=== PATIENT | female | born 1990 | race American Indian/Alaskan Native ===

== ENCOUNTER 2019-04-06 16:01 | Emergency (ER) | payer SELFPAY ==
[2019-04-06 16:43] LABS: Bacteria,Urine 1+ /HPF (Negative); Bilirubin,Urine NEG (Negative); Blood,Urine SM (Negative); Color,Urine Straw (Yellow); Mucus,Urine FEW /HPF; Protein,Urine <15 mg/dL mg/dL (Negative); Urobilinogen,Urine < 2.0 mg/dL (<2.0)
[2019-04-06] MEDS ORDERED: ONDANSETRON 4 MG/2 ML INJ IV ONE (16:44)
[2019-04-06] MEDS ORDERED: SODIUM CHLORIDE 0.9% 1000 ML 1,000 ML IV ONE (16:44)
--- NOTE | 2019-04-06 16:47 | Emergency Department Report ---
ED Abdominal Pain HPI - General Chief Complaint: Abdominal Pain Stated Complaint: GLF Time Seen by Provider: 04/06/19 16:42 Source: family Mode of arrival: Stretcher Limitations: No Limitations - History of Present Illness Initial Comments: Patient is a 28-year-old female that presents emergency room with complaints of abdominal pain. Patient states she passed out today and fell on her stomach. Patient denies vaginal bleeding. Patient states she is 17 weeks . Patient states she has confirmed ultrasound at another ER, [facility] Patient states everything was normal with her transvaginal ultrasound. Patient states she is having nausea and vomiting. Patient states her abdominal pain is a 6 out of 10 and is generalized. Patient states the pain is better with rest and worse with movement. Patient states she is . MD Complaint: abdominal pain -: Sudden Location: diffuse Radiation: none Migration to: no migration Severity scale (0 -10): 6 Quality: aching Consistency: constant Improves With: rest Worsens With: vomiting, movement Associated Symptoms: nausea, vomiting, syncope. denies: diarrhea, fever, chills, constipation, dysuria, hematemesis, hematochezia, melena, hematuria, anorexia - Related Data Previous Rx's Medication Instructions Recorded Last Taken Type Ondansetron [Zofran Odt] 4 mg PO Q8HR PRN #12 tab.rapdis 04/06/19 Unknown Rx Vit No.129/Iron/Folic 1 each PO DAILY 30 Days #30 tablet 04/06/19 Unknown Rx [ Tablet] Allergies Allergy/AdvReac Type Severity Reaction Status Date / Time No Known Allergies Allergy Unverified 04/06/19 16:33 ED Review of Systems ROS: Stated complaint: GLF Other details as noted in HPI Constitutional: denies: chills, fever Eyes: denies: eye pain, eye discharge, vision change ENT: denies: ear pain, throat pain Respiratory: denies: cough, shortness of breath, wheezing Cardiovascular: denies: chest pain, palpitations Endocrine: no symptoms reported Gastrointestinal: abdominal pain, nausea, vomiting. denies: diarrhea Genitourinary: denies: urgency, dysuria, discharge Musculoskeletal: denies: back pain, joint swelling, arthralgia Skin: denies: rash, lesions Neurological: headache. denies: weakness, paresthesias Psychiatric: denies: anxiety, depression Hematological/Lymphatic: denies: easy bleeding, easy bruising ED Past Medical Hx - Past Medical History Previous Medical History?: Yes Additional medical history: pre-eclampsia - Surgical History Past Surgical History?: No - Family History Family history: no significant - Social History Smoking Status: Never Smoker Substance Use Type: None - Medications Home Medications: Home Medications Medication Instructions Recorded Confirmed Last Taken Type Ondansetron [Zofran Odt] 4 mg PO Q8HR PRN #12 tab.rapdis 04/06/19 Unknown Rx Vit No.129/Iron/Folic 1 each PO DAILY 30 Days #30 tablet 04/06/19 Unknown Rx [ Tablet] ED Physical Exam - General Limitations: No Limitations General appearance: alert, in no apparent distress - Head Head exam: Present: atraumatic, normocephalic - Eye Eye exam: Present: normal appearance - ENT ENT exam: Present: mucous membranes moist - Neck Neck exam: Present: normal inspection - Respiratory Respiratory exam: Present: normal lung sounds bilaterally. Absent: respiratory distress - Cardiovascular Cardiovascular Exam: Present: regular rate, normal rhythm. Absent: systolic murmur, diastolic murmur, rubs, gallop - GI/Abdominal GI/Abdominal exam: Present: soft, normal bowel sounds - Extremities Exam Extremities exam: Present: normal inspection - Back Exam Back exam: Present: normal inspection - Neurological Exam Neurological exam: Present: alert, oriented X3 - Psychiatric Psychiatric exam: Present: normal affect, normal mood - Skin Skin exam: Present: warm, dry, intact, normal color. Absent: rash ED Course Vital Signs 04/06/19 04/06/19 04/06/19 16:26 16:34 16:40 Temperature 98.6 F Pulse Rate 98 H Respiratory 20 19 Rate Blood Pressure Blood Pressure 127/77 [Right] O2 Sat by Pulse 100 100 100 Oximetry 04/06/19 04/06/19 04/06/19 17:30 18:57 19:20 Temperature Pulse Rate 96 H 83 102 H Respiratory 21 16 20 Rate Blood Pressure 106/58 106/58 Blood Pressure 112/67 [Right] O2 Sat by Pulse 99 99 100 Oximetry 04/06/19 04/06/19 04/06/19 19:30 20:00 20:30 Temperature Pulse Rate 105 H 96 H 103 H Respiratory 18 17 22 Rate Blood Pressure 117/81 112/67 125/69 Blood Pressure [Right] O2 Sat by Pulse 100 98 99 Oximetry - Reevaluation(s) Reevaluation #1: Patient tolerated by mouth intake. Patient tolerated water intake. Patient denies nausea and vomiting his time. Patient denies pain. Patient ultrasound done. I discussed all results with patient. Patient is stable for discharge. Patient discharged home. Patient agrees with plan of care and discharge. Patient given discharge instructions. Patient voiced understanding of discharge instructions. 04/06/19 20:32 ED Medical Decision Making - Lab Data Result diagrams: 04/06/19 17:07 04/06/19 17:07 - Radiology Data Radiology results: report reviewed US transvaginal, US OB >= 14 weeks Fetus INDICATION / CLINICAL INFORMATION: 17 week preg. COMPARISON: None available. FINDINGS: Single, viable intrauterine . heart rate 169 [place]-rump length measures 1.85 cm, corresponding to a gestational age of 8 weeks 3 days. IMPRESSION: 1. Single, viable 8 week 3 day intrauterine . - Medical Decision Making Patient is a 28-year-old female that presents emergency room that presents emergency room with a syncopal episode and abdominal pain. Patient stated she had a syncopal episode and fell onto her belly. Patient has a documented IUP by ultrasound. Patient has not had any care. Patient had labs done which unremarkable except for elevated hCG. Patient's ultrasound was positive for a viable 8 week IUP. Patient tolerated by mouth intake. Patient tolerated fluid intake. Patient given IV fluids. Patient given 1 dose of zofran and responded well. Patient first follow up with a primary care and [employer] as soon as possible. Patient given a prescription for Zofran and vitamin. - Differential Diagnosis fall. Abdominal pain. Abdominal injury. Syncope. Nausea vomiting Critical care attestation.: If time is entered above; I have spent that time in minutes in the direct care of this critically ill patient, excluding procedure time. ED Disposition Clinical Impression: Abdominal pain due to injury, Dehydration Qualifiers: Weeks of gestation: 8 weeks Qualified Code(s): Z3A.08 - 8 weeks gestation of Syncope Qualifiers: Syncope type: unspecified Qualified Code(s): R55 - Syncope and collapse Nausea & vomiting Qualifiers: Vomiting type: unspecified Vomiting Intractability: non-intractable Qualified Code(s): R11.2 - Nausea with vomiting, unspecified Disposition: DC-01 TO HOME OR SELFCARE Is pt being admited?: No Does the pt Need Aspirin: No Condition: Stable Instructions: Threatened Miscarriage (ED), Morning Sickness (ED), (ED), Syncope (ED), Abdominal Pain (ED) Additional Instructions: Patient to follow up with primary care in 2-3 days. Patient to follow up with [employer] in 2-3 days. Patient to rest. Patient to avoid strenuous exercise or activities. Patient to increase water. Patient take medications as directed. Patient start a vitamin. Patient to take Tylenol when necessary for pain. Prescriptions: Vit No.129/Iron/Folic [ Tablet] 1 each PO DAILY 30 Days #30 tablet Ondansetron [Zofran Odt] 4 mg PO Q8HR PRN #12 tab.rapdis PRN Reason: Nausea And Vomiting Referrals: PRIMARY CAREMD [Primary Care Provider] - 2-3 Days [facility] [Outside] - 2-3 Days FRANKLYN JOHNSON MD [Staff Physician] - 2-3 Days Time of Disposition: 20:32
[2019-04-06 17:29] LABS: Basophils # (Auto) 0.1 K/mm3 (0.0-0.1); Basophils % (Auto) 0.6 % (0.0-1.8); Eosinophils # (Auto) 0.2 K/mm3 (0.0-0.4); Lymphocytes # (Auto) 2.5 K/mm3 (1.2-5.4); Lymphocytes % (Auto) 25.4 % (13.4-35.0); Mean Corpuscular HGB Conc 35 % (30-34); Mean Corpuscular Volume 88 fl (79-97); Monocytes # (Auto) 0.5 K/mm3 (0.0-0.8); Monocytes % (Auto) 5.4 % (0.0-7.3); Platelet Count 262 K/mm3 (140-440); Red Blood Count 4.54 M/mm3 (3.65-5.03); Red Cell Distribution Width 14.1 % (13.2-15.2)
[2019-04-06 17:56] LABS: Alanine Aminotransferase 39 units/L (7-56); Albumin 3.7 g/dL (3.9-5); BUN/Creatinine Ratio 15; Blood Urea Nitrogen 6 mg/dL (7-17); Calcium 9.3 mg/dL (8.4-10.2); Hemolysis Index 22
[2019-04-06 18:26] LABS: Bilirubin,Direct < 0.2 mg/dL (0-0.2)
--- NOTE | 2019-04-06 20:04 | Ultrasound Report ---
US transvaginal, US OB >= 14 weeks Fetus INDICATION / CLINICAL INFORMATION: 17 week preg. COMPARISON: None available. FINDINGS: Single, viable intrauterine . heart rate 169 [place]-rump length measures 1.85 cm, corresponding to a gestational age of 8 weeks 3 days. IMPRESSION: 1. Single, viable 8 week 3 day intrauterine . Signer Name: Geoff Bailey MD Signed: 04/06/2019 8:00 PM Workstation Name: [id number]
[2019-04-06 20:38] VITALS: BP 125/69
== END 2019-04-06 20:50 | disposition home or self-care (01) ==
LOC: ED 16:01
DX: O26.891 Other specified pregnancy related conditions, first trimester (principal); E86.0 Dehydration; O21.8 Other vomiting complicating pregnancy; R55 Syncope and collapse; Z3A.01 Less than 8 weeks gestation of pregnancy
CPT/HCPCS: 36415; 76805; 76830; 80048; 80076; 81001; 84702; 85025; J2405; J7030; 76801; 76817; 96361; 96374